=== PATIENT | male | born 1975 | race Caucasian/White ===

== ENCOUNTER 2022-11-21 17:06 | Inpatient (IN) | payer SELFPAY ==
[~2022-11-21] VITALS: Ht 182.9 cm; Wt 70.0 kg
[2022-11-21 17:54] VITALS: BP 117/59
--- NOTE | 2022-11-21 18:00 | NUR ---
PATIENT ARRIVED DIRECT ADM FOR SURGERY. PIV WITH NS FLUIDS STARTED CHANGED INTO GOWN. FAMILY AT BEDSIDE. VITAL SIGNS, HIGH, AND WEIGHT TAKEN. AWAITING FOR FURTHER ORDERS.
--- NOTE | 2022-11-21 19:30 | NUR ---
RECEIVED REPORT FROM DAYSHIFT NURSE. PT IS LAYING IN BED WAITING FOR THE ARRIVAL OF OR TEAM TO START PROCEDURE. FAMILY IS AT BEDSIDE. ADVISED OF CHANGE OF NURSE FOR THE NIGHT. SAFETY PRECAUTIONS IN PLACE AND CALL LIGHT WITHIN REACH.
[2022-11-21 22:23] VITALS: BP 130/69
--- NOTE | 2022-11-21 22:26 | NUR ---
PT RETURN FROM OR. PT IS ALERT AND ORIENTATED. PT COMPLAINS OF BEING SORE. ON SIDE OF ABDOMEN. INCISIONS LOOK CLEAN. ADVISED PT OF PLAN OF CARE. SAFETY PRECAUTIONS IN PLACE AND CALL LIGHT WITHIN REACH.
[2022-11-21 22:30] VITALS: BP 130/80
[2022-11-21 22:45] VITALS: BP 122/67
[2022-11-21 23:00] VITALS: BP 119/63
[2022-11-21 23:30] VITALS: BP 121/67
[2022-11-22] VITALS: BP 117/66
[2022-11-22 01:00] VITALS: BP 117/59
--- NOTE | 2022-11-22 04:00 | NUR ---
PT IS IN BED SLEEPING. PT HAS CAYLA COMPLAINTS OF PAIN AT THIS TIME. PT STATES THAT ABDOMEN FEELS SORE BUT NO SERIOUS PAIN. SAFETY PRECAUTIONS IN PLACE AND CALL LIGHT WITHIN REACH.
[2022-11-22 04:06] VITALS: BP 114/56
[2022-11-22 05:48] LABS: BASO% 0.1 % (0-3); HEMATOCRIT 38.6 % (39.0-50.0); HEMOGLOBIN 12.8 g/dl (14.0-18.0); IMMATURE GRANULOCYTES 0.4 % (0.0-5.0); MEAN CELL VOLUME 99.2 fL CALC (80.0-100.0); MEAN CORPUSCULAR HGB 32.9 pG CALC (26.0-32.0); MEAN CORPUSCULAR HGB CONC 33.2 g/dL CAL (32.0-36.0); MONO% 5.8 % (2-13); NEUT# 14.9 thou/uL (1.82-7.42); NEUT% 90.7 % (42-76); RED BLOOD COUNT 3.89 mill/uL (4.70-6.10); RED CELL DISTRI WIDTH 11.9 % (11.5-15.5)
--- NOTE | 2022-11-22 07:10 | NUR ---
PERFROMED BEDSIDE REPORT WITH NIGHTSHIFT NURSE. PT NOTED LAYING SEMI WASHBURN SIN BED, A/OX3, SCD'S APPPLIED, ON RM AIR. PT IS A/OX3, DENIES ANY PAIN. PT HAS NOT AMBULATED OR BEEN OUT OF BED SINCE PROCEDURE. EDUCATED PT ON PLAN OF CARE, ENCOURAGED AMBULATIONS TODAY. EDUCATED ON MED SCHEDULE. PT BOWEL SOUNDS ARE HYPOACTIVE AT THIS TIME AND PT HAS NOT FLATULATED. IV SITE PRESENT APPEARS HEALTHY AND INTACT WITH FLUIDS RUNNING PER EMAR. EDUCATED PT ON DIET. OBSERVED PT SURGICAL INCISIONS ON ABD. 4 INCISIONS NOTED, APPEAR HEALTHY INTACT, DERMABOND PRESENT. DAMON DRAIN NOTED IN RLQ. MINOR BLOODY OUTPUT NOTED. CALL LIGHT WITHIN REACH AND SAFETY PRECAUTIONS IN PLACE.
[2022-11-22 07:20] VITALS: BP 108/58
--- NOTE | 2022-11-22 09:00 | NUR ---
GOT PT UP OUT OF BED. AMBULATED UP AND DOWN [place]. PT HAD STEADY GAIT, TOLERATED WELL. ONLY COMPLAINED OF MINOR SORENESS IN ABD AREA. EDUCATED PT ON IMPORTANCE AND BENEFITS OF AMBULATING AFTER SURGERY. AFTER AMBULATION PT SITTING UP IN CHAIR, OFFERED ICE WATER AND SNACKS UNTIL LUNCH. CALL LIGHT WITHIN REACH AND SAFETY PRECAUTIONS IN PLACE.
--- NOTE | 2022-11-22 12:00 | NUR ---
PT SITTING UP IN CHAIR, EATING AT THIS TIME. PT WAS ABLE TO TOLERATED FLUIDS AND SNACKS EARLIER. ENCOURAGED PT TO EAT TOLERATED. PT DOES COMPLAIN OF SOME PAIN AND SORENESS IN ABD AND RT SHOULDER. WILL FOLLOW UP WITH PAIN MEDICATION PER EMAR. CALL LIGHT WITHIN REACH AND SAFETY PRECAUTIONS IN PLACE.
[2022-11-22 15:07] VITALS: BP 110/52
--- NOTE | 2022-11-22 16:58 | NUR ---
PT WAS SITTING UP IN CHAIR. GOT PT UP AND OUT OF ROOM. AMBULATED UP AND DOWN [place]. STEADY GAIT, PT TOLERATED WELL. PT STILL COMPLAINS OF SORENESS, DID RE EDUCATED PT ON POST OP CARE AND SIDE EFFECTS. EMPTIED PT DAMON DRAIN, 25CC OF LIGHT RED DRAINAGE. PT SITTING BACK UP IN CHAIR AT THIS TIME AWAITING DINNER. CALL LIGHT WITHIN REACH AND SAFETY PRECAUTIONS IN PLACE.
[2022-11-22 19:03] VITALS: BP 106/56
--- NOTE | 2022-11-22 20:00 | NUR ---
RECEIVED BEDSIDE REPORT FROM DAYSHIFT NURSE. PT IS SITTING UP IN BED. ADVISED PT OF CHANGE OF NURSE FOR THE NIGHT. PT HAS NO COMPLAINTS OF PAIN AT THIS MOMENT. SAFETY PRECAUTIONS IN PLACE AND CALL LIGHT WITHIN REACH.
--- NOTE | 2022-11-23 | NUR ---
PT IS LYING IN BED SLEEPING. NO SIGNS OF PAIN OR DISCOMFORT AT THIS MOMENT. SAFETY PRECAUTIONS IN PLACE AND CALL LIGHT WITHIN REACH.
[2022-11-23 00:08] VITALS: BP 111/58
[2022-11-23 04:00] VITALS: BP 106/63
--- NOTE | 2022-11-23 04:00 | NUR ---
PT IS SLEEPING COMFORTABLY. PT SHOWS NO SIGNS OF PAIN OR DISCOMFORT AT THIS MOMENT SAFETY PRECAUTIONS IN PLACE AND CALL LIGHT WITHIN REACH.
[2022-11-23 04:07] VITALS: BP 106/63
[2022-11-23 05:11] LABS: BASO% 0.2 % (0-3); EOS% 0.3 % (0-8); HEMATOCRIT 34.6 % (39.0-50.0); HEMOGLOBIN 11.3 g/dl (14.0-18.0); IMMATURE GRANULOCYTES 0.1 % (0.0-5.0); LYMPH% 10.1 % (15-41); MEAN CELL VOLUME 101.2 fL CALC (80.0-100.0); MEAN CORPUSCULAR HGB CONC 32.7 g/dL CAL (32.0-36.0); MONO% 10.9 % (2-13); NEUT# 8.31 thou/uL (1.82-7.42); NEUT% 78.4 % (42-76); RED BLOOD COUNT 3.42 mill/uL (4.70-6.10)
[2022-11-23 06:50] VITALS: BP 105/55
--- NOTE | 2022-11-23 07:00 | NUR ---
REPORT RECEIVED FROM SYLVIA MOORE.
--- NOTE | 2022-11-23 07:45 | NUR ---
PT RESTING IN SEMI FOWLERS POSITION,A&O X3;ASSESSMENT COMPLETED;PT POD #2 APPENDECTOMY;PT DENIES ANY CURRENT PAIN OR DISCOMFORTS,PAIN SCALE AND REPORTING EDUCATED;RESPIRATIONS EVEN AND UNLABORED ON RA,CLEAR LUNG SOUNDS;ABDOMEN SOFT AND ACTIVE IN ALL 4 QUADRANTS;DRESSING X3 TO ABDOMEN CDI WITH DAMON DRAIN NOTED TO RQ DRAINING TO BULB SUCTION;STRONG PEDAL PULSES;SKIN INTACT;#20G TO LFA INFUSING NS @100ML/HR,SITE APPEARS HEALTHY;REGULAR DIET PROVIDED;PT DENIES ANY ADDITIONAL NEEDS AND IS ENCOURAGED TO CALL FOR ASSISTANCE IF NEEDED;FALL PRECAUTIONS IN PLACE WITH BED IN THE LOWEST POSITION AND CALL LIGHT IN REACH;FREQUENT ROUNDS MADE.
--- NOTE | 2022-11-23 08:39 | NUR ---
AT BEDSIDE DISCUSSING POC WITH PT.
[2022-11-23] MEDS ORDERED: AMOX/K CLAV875 M1 PO (09:13)
[2022-11-23] MEDS ORDERED: LORTAB 5/3255 MG PO (09:14)
--- NOTE | 2022-11-23 10:30 | NUR ---
DAMON DRAIN REMOVED AT THIS TIME PER ORDER AND PT TOLERATED WELL. #20G TO LFA REMOVED WITH CATHETER INTACT;ALL DISCHARGE INSTRUCTIONS PROVIDED AT THIS TIME;PT INSTRUCTED TO TAKE MEDICATION DIRECTED, MEDICATIONS SENT TO PHARMACY FOR PHYSICAL SCIENCE PROFESSOR. PT INSTRUCTED ON NO HEAVY LIFTING AND TO F/U WITH IN 1 WEEK 11/30/22 @ 9:15AM. PT DENIES ANY ADDITIONAL QUESTIONS OR NEEDS;WC TO BE PROVIDED FOR D/C HOME.MOTHER TO TRANSPORT PT HOME.
--- NOTE | 2022-11-23 10:40 | NUR ---
Discharge instructions given. Patient verbalizes understanding of same. Discharged in stable condition via Wheelchair to Home with family. All belongings sent with pt. PT TRANSPOTED TO LOBBY IN STABLE CONDITION VIA WC ACCOMPANIED BY WILLIAM REYNOLDS AND MOTHER;ALL BELONGINGS LEFT WITH PT AT THIS TIME.MOTHER TO TRANSPORT PT HOME.
== END 2022-11-23 10:40 | disposition home or self-care (01) | DRG 340 ==
LOC: MS2 17:06
PROVIDERS: ADMIT Surgery; ATTEND Surgery
PROC: 0DTJ4ZZ Resection of Appendix, Percutaneous Endoscopic Approach (ICD-10-PCS; principal; 2022-11-21)
DX: K35.33 Acute appendicitis with perforation, localized peritonitis, and gangrene, with abscess (principal)
CPT/HCPCS: J0131; J0690; J1100; J2710

== ENCOUNTER 2024-04-23 07:15 | Day surgery (SDC) | payer OTHER ==
[~2024-04-23] VITALS: Ht 182.9 cm; Wt 74.8 kg
[~2024-04-23 07:15] MED LIST: AMOX/K CLAV875 M1 PO; LORTAB 5/3255 MG PO; MULTI VIT PO
[2024-04-23] MEDS ORDERED: FAMOTIDINE 10MG/ML 2ML SDV IV ONE (07:33)
[2024-04-23] MEDS ORDERED: LACTATED RINGER'S 1,000 ML IV ONE (07:34)
[2024-04-23 08:51] VITALS: BP 122/79
[2024-04-23] MEDS ORDERED: GLYCOPYRROLATE 0.2 MG/ML IV ONE (11:40)
[2024-04-23] MEDS ORDERED: LIDOCAINE HCL 2% 2ML SDV IV ONE (11:40)
[2024-04-23] MEDS ORDERED: PROPOFOL 200 MG/20 ML VIAL IV ONE (11:40)
== END 2024-04-23 08:53 | disposition home or self-care (01) | DRG 951 ==
LOC: ENDO 07:15
PROVIDERS: ATTEND Surgery
PROC: 0DJD8ZZ Inspection of Lower Intestinal Tract, Via Natural or Artificial Opening Endoscopic (ICD-10-PCS; principal; 2024-04-23)
DX: Z12.11 Encounter for screening for malignant neoplasm of colon (principal); K64.8 Other hemorrhoids; Z86.0101 Personal history of adenomatous and serrated colon polyps
CPT/HCPCS: J1596